=== PATIENT | male | born 1985 | race Caucasian/White ===

== ENCOUNTER 2017-07-16 12:57 | Emergency (ER) | payer OTHER ==
[~2017-07-16] VITALS: Ht 180.3 cm; Wt 99.8 kg
[~2017-07-16 12:57] MED LIST: ANUSOL-HC25 MG RC; CLARITIN10 MG PO; CYCLOBENZAPRINE10 MG PO; DOXYCYCLINE MO100 MG PO; FLEXERIL10 MG PO; IBU-8800 MG PO; MOTRIN600 MG PO; MOTRIN800 MG PO; Motrin,Rufen800 MG PO; NKHM; NKHM PO; PREDNISONE20 MG PO; ROBITUSSIN-AC480 ML PO; TRAMADOL HCL50 MG PO; ULTRAM50 MG PO; ZITHROMAX Z PA250 MG PO; ZOFRAN ODT4 MG SL
[2017-07-16 13:03] VITALS: BP 151/75
[2017-07-16] MEDS ORDERED: NAPROSYN500 MG PO (13:36)
[2017-07-16] MEDS ORDERED: CHLORZOXAZONE500 M2 PO (13:36)
== END 2017-07-16 14:38 | disposition home or self-care (01) ==
LOC: ED 12:57
DX: M54.5 Low back pain (principal); R03.0 Elevated blood-pressure reading, without diagnosis of hypertension; F17.200 Nicotine dependence, unspecified, uncomplicated; F11.10 Opioid abuse, uncomplicated; G25.81 Restless legs syndrome; Z79.899 Other long term (current) drug therapy

== ENCOUNTER 2017-07-18 15:23 | Emergency (ER) | payer OTHER ==
[~2017-07-18] VITALS: Ht 180.3 cm; Wt 99.8 kg
[~2017-07-18 15:23] MED LIST changes: +CHLORZOXAZONE500 M2 PO; +NAPROSYN500 MG PO
[2017-07-18 15:29] VITALS: BP 146/84
== END 2017-07-18 16:02 | disposition home or self-care (01) ==
LOC: ED 15:23
DX: H16.133 Photokeratitis, bilateral (principal); F17.200 Nicotine dependence, unspecified, uncomplicated; W89.8XXA Exposure to other man-made visible and ultraviolet light, initial encounter; Y93.89 Activity, other specified; Y92.89 Other specified places as the place of occurrence of the external cause; Y99.8 Other external cause status

== ENCOUNTER 2017-12-24 21:02 | Emergency (ER) | payer OTHER ==
[~2017-12-24] VITALS: Ht 180.3 cm; Wt 99.8 kg
--- NOTE | ~2017-12-24 | EKG ---
[place], [place] ELECTROCARDIOGRAM REPORT NAME: BERT FRIED JR UNIT #: [id number] ROOM: DOCTOR: EPIPHANY DRAFT REPORT BIRTHDATE: [birth year] [facility] Test Date: 2017-12-25 Test Time: 10:48:46 Pat Name: BERT FRIED Department: Room: Gender: Chief Librarian Circulation Department: JORDEN VILLAFANA : 1985 Requested By: MELANY KOENIG Order Number: [id number] Reading MD: Preet Pinedo MD Measurements Intervals [place] Rate: 79 P: 43 LA: 157 QRS: 80 QRSD: 100 T: 45 QT: 380 QTc: 436 Interpretive Statements Sinus rhythm ST elev, probable normal early repol pattern Baseline wander in lead(s) V2 No previous ECG available for comparison Electronically Signed On 12-27-2017 8:20:28 PDT by Preet Pinedo MD CM:EKGRPT:ELECTROCARDIOGRAM REPORT [id number] MELANY IBRAHIM DRAFT REPORT MELANY KOENIG MD
[2017-12-24 21:45] LABS: BASO # 0.1 10*3/uL (0.0-0.1); BASO % 0.5 % (0.0-1.0); EOS # 0.1 10*3/uL (0.0-0.4); EOS % 0.8 % (1.0-4.0); HEMATOCRIT 43.4 % (42.0-52.0); HEMOGLOBIN 14.9 g/dl (14.0-18.0); LYMPH # 2.1 10*3/uL (1.3-4.4); LYMPH % 17.1 % (27.0-41.0); MEAN CELL VOLUME 85.4 fl (80.0-94.0); MEAN CORPUSCULAR HGB 29.3 pg (27.0-31.0); MEAN CORPUSCULAR HGB CONC 34.3 g/dl (33.0-37.0); MEAN PLATELET VOLUME 8.7 fl (9.6-12.3); MONO # 0.8 10*3/uL (0.1-1.0); MONO % 6.4 % (3.0-9.0); NEUT # 9.3 10*3/uL (2.3-7.9); NEUT % 74.7 % (47.0-73.0); PLATELET COUNT AUTOMATED 258 10*3/uL (130-400); RED BLOOD COUNT 5.08 10*6/uL (4.50-5.90); RED CELL DISTRI WIDTH 12.5 % (0-14.5); WHITE BLOOD COUNT 12.4 10*3/uL (4.8-10.8)
[2017-12-25 01:29] LABS: ALBUMIN 3.9 gm/dl (3.1-4.5); ALKALINE PHOSPHATASE 58 U/L (45-117); BUN 10 mg/dl (7-24); CHLORIDE 107 mmol/L (98-107); CREATININE 0.89 mg/dL (0.70-1.30); POTASSIUM 3.5 mmol/L (3.5-5.1); SGOT/AST 17 IU/L (3-35); SGPT/ALT 34 U/L (12-78); SODIUM 142 mmol/L (136-145)
[2017-12-25 01:30] LABS: ACETAMINOPHEN (TYLENOL) < 2.0 ug/ml (10-30); ETHYL ALCOHOL < 3.0 mg/dl (<3)
[2017-12-25 10:32] LABS: BILIRUBIN NEGATIVE (NEGATIVE); BLOOD NEGATIVE (NEGATIVE); CLARITY SL CLOUDY (CLEAR); COLOR YELLOW (YELLOW); GLUCOSE NEGATIVE (NEGATIVE); KETONE NEGATIVE (NEGATIVE); LEUKO ESTERASE NEGATIVE (NEGATIVE); NITRITE NEGATIVE (NEGATIVE); SPECIFIC GRAVITY >= 1.030 (1.005-1.030); UROBILINOGEN 0.2 E.U./dl (0.2-1.0)
[2017-12-25 10:39] LABS: MUCOUS 3+
[2017-12-25 10:41] LABS: URINE AMPHETAMINES < 1000 (1000ng/ml); URINE BARBITURATES < 200 (200ng/ml); URINE BENZODIAZEPINES > 200 (200ng/ml); URINE CANNABINOIDS (THC) > 50 (50ng/ml); URINE COCAINE > 300 (300ng/ml); URINE METHADONE < 300 (300ng/ml); URINE OPIATES < 300 (300ng/ml)
[2017-12-25 10:43] LABS: URINE PHENCYCLIDINE < 25 (25ng/ml)
[2017-12-25 11:33] VITALS: BP 118/71
== END 2017-12-25 12:10 | disposition home or self-care (01) ==
LOC: ED 21:02
PROVIDERS: Emergency Medicine
DX: S71.111A Laceration without foreign body, right thigh, initial encounter (principal); S70.11XA Contusion of right thigh, initial encounter; F11.10 Opioid abuse, uncomplicated; F41.9 Anxiety disorder, unspecified; G47.00 Insomnia, unspecified; F32.9 Major depressive disorder, single episode, unspecified; R45.851 Suicidal ideations; F19.10 Other psychoactive substance abuse, uncomplicated; F17.200 Nicotine dependence, unspecified, uncomplicated; G25.81 Restless legs syndrome; Z79.899 Other long term (current) drug therapy; X78.9XXA Intentional self-harm by unspecified sharp object, initial encounter; Y93.89 Activity, other specified; Y92.89 Other specified places as the place of occurrence of the external cause; Y99.9 Unspecified external cause status

== ENCOUNTER 2018-04-26 12:48 | Emergency (ER) | payer BC ==
[~2018-04-26] VITALS: Ht 180.3 cm; Wt 95.3 kg
[2018-04-26 12:48] VITALS: BP 152/86
[2018-04-26 13:14] LABS: BASO # 0.1 10*3/uL (0.0-0.1); BASO % 0.5 % (0.0-1.0); EOS # 0.5 10*3/uL (0.0-0.4); EOS % 3.8 % (1.0-4.0); HEMATOCRIT 46.7 % (42.0-52.0); HEMOGLOBIN 15.9 g/dl (14.0-18.0); LYMPH # 1.9 10*3/uL (1.3-4.4); LYMPH % 14.6 % (27.0-41.0); MEAN CELL VOLUME 86.3 fl (80.0-94.0); MEAN CORPUSCULAR HGB 29.4 pg (27.0-31.0); MEAN PLATELET VOLUME 8.6 fl (9.6-12.3); MONO # 0.7 10*3/uL (0.1-1.0); MONO % 5.1 % (3.0-9.0); NEUT % 75.5 % (47.0-73.0); PLATELET COUNT AUTOMATED 273 10*3/uL (130-400); RED BLOOD COUNT 5.41 10*6/uL (4.50-5.90); RED CELL DISTRI WIDTH 12.4 % (0-14.5); WHITE BLOOD COUNT 13.3 10*3/uL (4.8-10.8)
[2018-04-26 13:26] LABS: BUN 8 mg/dl (7-24); CHLORIDE 109 mmol/L (98-107); CREATININE 0.83 mg/dL (0.70-1.30); POTASSIUM 3.9 mmol/L (3.5-5.1); SODIUM 142 mmol/L (136-145)
[2018-04-26] MEDS ORDERED: IMODIUM A-D2 M2 PO (14:33)
== END 2018-04-26 14:38 | disposition home or self-care (01) ==
LOC: ED 12:48
PROVIDERS: Emergency Medicine
DX: K52.9 Noninfective gastroenteritis and colitis, unspecified (principal); F17.200 Nicotine dependence, unspecified, uncomplicated

== ENCOUNTER 2018-10-05 15:14 | Emergency (ER) | payer SELFPAY ==
[~2018-10-05] VITALS: Ht 180.3 cm; Wt 99.8 kg
[2018-10-05 15:14] VITALS: BP 130/70
[~2018-10-05 15:14] MED LIST changes: +IMODIUM A-D2 M2 PO
== END 2018-10-05 17:26 | disposition home or self-care (01) ==
LOC: ED 15:14
DX: S61.411A Laceration without foreign body of right hand, initial encounter (principal); W25.XXXA Contact with sharp glass, initial encounter; Y93.89 Activity, other specified; Y92.89 Other specified places as the place of occurrence of the external cause; Y99.8 Other external cause status

== ENCOUNTER 2020-07-03 13:17 | Emergency (ER) | payer OTHER ==
[~2020-07-03] VITALS: Ht 182.8 cm; Wt 99.8 kg
[2020-07-03 13:25] VITALS: BP 158/83
[2020-07-03 13:48] LABS: BASO # 0.1 10*3/uL (0.0-0.1); BASO % 0.7 % (0.0-1.0); EOS # 0.4 10*3/uL (0.0-0.4); EOS % 4.8 % (1.0-4.0); HEMATOCRIT 43.5 % (42.0-52.0); LYMPH # 2.8 10*3/uL (1.3-4.4); LYMPH % 31.8 % (27.0-41.0); MEAN CELL VOLUME 84.6 fl (80.0-94.0); MEAN CORPUSCULAR HGB 28.6 pg (27.0-31.0); MEAN CORPUSCULAR HGB CONC 33.8 g/dl (33.0-37.0); MEAN PLATELET VOLUME 8.5 fl (9.6-12.3); MONO # 0.7 10*3/uL (0.1-1.0); MONO % 8.1 % (3.0-9.0); NEUT # 4.8 10*3/uL (2.3-7.9); PLATELET COUNT AUTOMATED 256 10*3/uL (130-400); RED BLOOD COUNT 5.14 10*6/uL (4.50-5.90); RED CELL DISTRI WIDTH 11.9 % (0-14.5); WHITE BLOOD COUNT 8.9 10*3/uL (4.8-10.8)
[2020-07-03 14:03] LABS: ALKALINE PHOSPHATASE 58 U/L (45-117); BUN 13 mg/dl (7-24); CHLORIDE 108 mmol/L (98-107); CREATININE 0.81 mg/dL (0.70-1.30); POTASSIUM 3.8 mmol/L (3.5-5.1); SGOT/AST 12 IU/L (3-35); SGPT/ALT 34 U/L (12-78); SODIUM 140 mmol/L (136-145); TOTAL PROTEIN 7.5 gm/dL (6.4-8.2)
== END 2020-07-03 16:30 | disposition home or self-care (01) ==
LOC: ED 13:17
PROVIDERS: Nurse Practitioner
DX: G43.909 Migraine, unspecified, not intractable, without status migrainosus (principal); Z79.899 Other long term (current) drug therapy

== ENCOUNTER → 2020-10-08 | Outpatient (CLI) | payer OTHER | END | disposition home or self-care (01) | LOC: LAB 19:39 | PROVIDERS: ATTEND Registered Nurse Critical Care Medicine | DX: F11.20 Opioid dependence, uncomplicated (principal) ==

== ENCOUNTER 2021-06-28 16:27 | Emergency (ER) | payer OTHER ==
[~2021-06-28] VITALS: Ht 180.3 cm; Wt 99.8 kg
[2021-06-28 16:37] VITALS: BP 163/86
[2021-06-28] MEDS ORDERED: CLONIDINE HCL0.2 MG PO (16:38)
[2021-06-28] MEDS ORDERED: LAMOTRIGINE100 MG PO (16:38)
[2021-06-28] MEDS ORDERED: SERTRALINE HYDR50 MG PO (16:38)
[2021-06-28] MEDS ORDERED: TRAZODONE50 MG PO (16:38)
[2021-06-28] MEDS ORDERED: SUBOXONE 12 MG1 EACH PO (16:40)
[2021-06-28] MEDS ORDERED: TYLENOL325 M1 PO (17:07)
[2021-06-28] MEDS ORDERED: NAPROXEN250 MG PO (17:07)
== END 2021-06-28 17:32 | disposition home or self-care (01) ==
LOC: ED 16:27
DX: M25.532 Pain in left wrist (principal); G43.909 Migraine, unspecified, not intractable, without status migrainosus; Z79.899 Other long term (current) drug therapy; W01.0XXA Fall on same level from slipping, tripping and stumbling without subsequent striking against object, initial encounter; Y93.89 Activity, other specified; Y92.89 Other specified places as the place of occurrence of the external cause; Y99.8 Other external cause status

== ENCOUNTER 2022-10-05 19:31 | Emergency (ER) | payer OTHER ==
[~2022-10-05] VITALS: Ht 175.2 cm; Wt 80.7 kg
[~2022-10-05 19:31] MED LIST changes: +CLONIDINE HCL0.2 MG PO; +LAMOTRIGINE100 MG PO; +NAPROXEN250 MG PO; +SERTRALINE HYDR50 MG PO; +SUBOXONE 12 MG1 EACH PO; +TRAZODONE50 MG PO; +TYLENOL325 M1 PO
[2022-10-05 19:39] VITALS: BP 141/77
== END 2022-10-05 21:10 | disposition home or self-care (01) ==
LOC: ED 19:31
DX: S99.922A Unspecified injury of left foot, initial encounter (principal); Z79.899 Other long term (current) drug therapy; W20.8XXA Other cause of strike by thrown, projected or falling object, initial encounter; Y93.89 Activity, other specified; Y92.89 Other specified places as the place of occurrence of the external cause; Y99.8 Other external cause status